=== PATIENT | female | born 1985 | race African-American/Black ===

== ENCOUNTER 2021-07-25 16:25 | Emergency (ER) | payer OTHER ==
[~2021-07-25] VITALS: Ht 170.2 cm; Wt 79.4 kg
[2021-07-25] MEDS ORDERED: ZANAFLEX4 MG PO (20:24)
[2021-07-25] MEDS ORDERED: MOBIC7.5 MG PO (20:24)
[2021-07-25 21:00] VITALS: BP 122/78
== END 2021-07-25 20:49 | disposition home or self-care (01) ==
LOC: ER 16:25
DX: M79.652 Pain in left thigh (principal); M25.512 Pain in left shoulder; F12.90 Cannabis use, unspecified, uncomplicated; Z98.890 Other specified postprocedural states; W10.8XXA Fall (on) (from) other stairs and steps, initial encounter; Y93.89 Activity, other specified; Y92.89 Other specified places as the place of occurrence of the external cause; Y99.8 Other external cause status